=== PATIENT | female | born 1970 | race Caucasian/White ===

== ENCOUNTER → 2023-07-25 13:30 | Outpatient (REF) | payer BC, SELFPAY | LOC: HWRAD 13:30 | PROVIDERS: ATTENDING PHYSICIAN Internal Medicine | DX: Z13.820 Encounter for screening for osteoporosis (principal); Z78.0 Asymptomatic menopausal state | CPT/HCPCS: 77080 ==

== ENCOUNTER → 2024-01-14 12:05 | Outpatient (REF) | payer BC, SELFPAY | LOC: WDC 12:05 | PROVIDERS: ATTENDING PHYSICIAN Obstetrics & Gynecology Gynecology; FAMILY PHYSICIAN Internal Medicine | DX: Z12.31 Encounter for screening mammogram for malignant neoplasm of breast (principal) | CPT/HCPCS: 77063; 77067 ==

== ENCOUNTER → 2024-02-10 10:58 | Outpatient (REF) | payer BC, SELFPAY | LOC: WDC 10:58 | PROVIDERS: ATTENDING PHYSICIAN Obstetrics & Gynecology Gynecology; FAMILY PHYSICIAN Internal Medicine | DX: R92.2 Inconclusive mammogram (principal) | CPT/HCPCS: 76641 ==

== ENCOUNTER 2024-08-26 16:26 | Emergency (ER) | payer BC, SELFPAY ==
[2024-08-26 16:28] VITALS: BP 152/92
--- NOTE | 2024-08-26 17:14 | ED.MUSCINJ ---
HPI-Injury
General
Chief Complaint: Musculo-Skeletal Complaint
Source: patient
Exam Limitations: none
Time Seen by Provider: 08/26/24 16:56
Nursing documentation reviewed up to this point in time: agreed with
History of Present Illness-Injury
Initial Injury comments:
54-year-old female with no significant past medical history states about an hour ago she was running, tripped and fell scraping her chin on the sidewalk and impacting her nose. She did have a traumatic nosebleed but that has stopped, she denies
headache, neck pain, LOC. She has had a tetanus immunization within the past 5 years. Other than her facial injury she denies any other injuries. She was able to get up and walk home. She is not anticoagulated.
Past History
Past History
ED Past Medical History: None
ED Past Surgical History: None
Social History
Tobacco: Non-smoker
Alcohol: Occasional
Personal:
Living: with family
Employment: Employed
Review of Systems
Review of Systems
Allergies reviewed?: Yes
All Other Systems: ROS reviewed and negative except as documented in HPI and ROS
EENT: Reports other (nose bleed has stopped. Nose is swollen and tender)
Respiratory: Denies trouble breathing
Cardiac: Denies chest pain or syncope
ABD/GI: Denies abdominal pain, nausea or vomiting
Musculoskeletal: Denies neck pain or back pain
Skin: Reports other (scrapes on chin, )
Neurological: Reports no symptoms
Phy Exam
Physical Exam
Physical Exam:
GENERAL: No acute distress. A&Ox3.
CONSTITUTIONAL: Afebrile.
EYES: clear, conjunctivae normal
ENMT: moist mucus membranes, Pharynx nl. Dried blood in nasal passages, no active bleeding
RESPIRATORY: Regular respirations, nonlabored, lungs clear.
CARDIOVASCULAR: Regular rate and rhythm, no murmurs, no rubs.
GI: Soft, nontender
MUSCULOSKELETAL: Moves with ease. Well perfused.
SKIN: Warm, dry, pink
PSYCH: Normal mood and affect. Well kept, interactive and appropriate
NEUROLOGIC: Awake, alert and oriented. Cranial nerves II through XII intact. No focal neurological deficits
Injury Course
Orders/Labs/Results
Orders:
Orders
08/26/24 17:13
Nasal Bones, complete 3 Views [CR Nasal Bones Comp Min 3 View] Urgent
Comment:
Reason For Exam: ain, swelling after fall
MDM/Problems Addressed
Differential Diagnosis Includes:
Nasal contusion, nasal fracture
MDM/Problems Addressed:
54-year-old female with no significant past medical history states about an hour ago she was running, tripped and fell scraping her chin on the sidewalk and impacting her nose. She did have a traumatic nosebleed but that has stopped, she denies
headache, neck pain, LOC. She has had a tetanus immunization within the past 5 years. Other than her facial injury she denies any other injuries. She was able to get up and walk home. She is not anticoagulated.
Nasal bone x-ray initially read by this examiner: Small nondisplaced fracture distal nasal bone. Soft tissue swelling.
Abrasions on chin cleansed with normal saline solution, antibiotic ointment and Band-Aids applied
*Critical Care Note
Total Time (30-74mins, 75-104mins- exclusive of procedures): Not Applicable
ED Attending Note
-
Portions of this chart may have been created with voice recognition software.� Occasional wrong word or��sound alike� substitutions may have occurred due to the inherent limitations of voice recognition software.
Discharge Plan
Departure
Patient Disposition: Home (Routine Discharge)
Date of Disposition: 08/26/24
Time of Disposition: 17:56
Patient with high blood pressure during this ER visit?: No
Condition: Good
Discharge Problem:
Epistaxis due to trauma, Nasal bone fracture, Abrasion of chin, Fall from slip, trip, or stumble
Instructions: Using Cold for Pain, Nose Fracture ED, Abrasions - ED discharge instructions
Prescriptions:
No Action
oxycodone-acetaminophen 5 MG/325 MG tablet
1 tab PO .Q4-6HPRN PRN (Reason: pain) Qty: 20 0RF
hydrocodone-acetaminophen 5 MG/500 MG tablet
1 tab PO Q6HPRN PRN (Reason: PAIN) Qty: 15 0RF
ondansetron 4 MG tablet,disintegrating
4 mg PO TIDPRN PRN (Reason: NAUSEA) Qty: 15 0RF
Referrals:
Justine Taylor MD [Family Provider] - As needed
Michaela Sosa MD [Active] - As needed
Activity Restrictions/Additional Instructions:
As we discussed, you have a small nondisplaced nasal bone fracture
Cold compress to the nose 15 minutes off and on is much as you can today and tomorrow to minimize swelling.
I gave you the name of an ENT doctor to use if your nose and your nasal airways are not back to normal within the next 3 weeks.
Tylenol or ibuprofen as needed for pain
Interventions
Interventions:
*Risk Screen - Suicide Last Done: 08/26/24 16:28
*General Assessment Last Done: 08/26/24 18:00
*Neglect/Abuse Screening Last Done: 08/26/24 16:28
*ED- Fall Risk Assessment Last Done: 08/26/24 18:00
*ED COVID-19 Vaccine History Last Done: 08/26/24 18:00
*Nursing Disposition Last Done: 08/26/24 18:00
ED-Musculoskeletal Assessment Last Done: 08/26/24 16:28
Discharge Date and Time
Discharge Date/Time: 08/26/24 18:00
Print Language: [id number]
== END 2024-08-26 18:00 | disposition home or self-care (01) ==
LOC: EMR 16:26
PROVIDERS: EMERGENCY PHYSICIAN Emergency Medicine; FAMILY PHYSICIAN Family Medicine
DX: S02.2XXA Fracture of nasal bones, initial encounter for closed fracture (principal); S00.81XA Abrasion of other part of head, initial encounter; R04.0 Epistaxis; W01.0XXA Fall on same level from slipping, tripping and stumbling without subsequent striking against object, initial encounter
CPT/HCPCS: 99283; 70160